=== PATIENT | male | born 1945 | race Caucasian/White ===

== ENCOUNTER 2016-08-28 08:54 | Outpatient (CLI) | payer MEDICARE, OTHER ==
[2016-08-28 09:45] LABS: #Basophils 0.2 thou/uL (0.0-0.2); #Eosinphils 0.4 thou/uL (0.0-0.7); #Lymphocytes 3.2 thou/uL (1.20-3.40); #Monocytes 0.6 thou/uL (0.11-0.59); %Basophils 2.1 % (0.0-1.0); %Eosinophils 5.4 % (0.0-10.0); %Lymphocytes 43.8 % (21.0-51.0); %Monocytes 8.1 % (0.0-10.0); %Neutrophils 40.6 % (42.0-75.0); Mean Corpuscular HGB CONC 34.5 g/dL (32.0-36.0); Mean Corpuscular Hemoglobin 31.9 pg (27.0-31.0); Mean Corpuscular Volume 92.5 fl (80.0-94.0); Mean Platelet Volume 7.9 fL (7.4-10.4); Platelet Count 263 thou/uL (130-400); RBC Distribution Width 12.3 % (11.5-14.5); White Blood Cell (WBC) Count 7.4 thou/uL (4.8-10.8)
[2016-08-28 09:59] LABS: ALT (SGPT) 22 U/L (0-55); AST (SGOT) 22 U/L (5-34); Albumin 4.4 g/dL (3.4-4.8); Alkaline Phosphatase 41 U/L (40-150); Anion Gap 13 mmol/L (10-20); BUN (Urea Nitrogen) 20 mg/dL (8.4-25.7); Bilirubin, Total 0.6 mg/dL (0.2-1.2); Calc. Creatinine Clearance 0 mL/min (70-130); Calcium 9.8 mg/dL (7.8-10.44); Carbon Dioxide 26 mmol/L (23-31); Cardiac Risk 6.5 (Less than 4.5); Chloride 110 mmol/L (98-107); Cholesterol 182 mg/dL (< 200 Desired); Estimated GFR-MDRD 63; Globulin 2.7 g/dL (2.4-3.5); Glucose 93 mg/dL (80-115); HDL Cholesterol 28 mg/dL (>60 Neg Risk); LDL Cholesterol, Calculated 98 mg/dL; Potassium 4.6 mmol/L (3.5-5.1); Protein, Total 7.1 g/dL (5.8-8.1); Sodium 144 mmol/L (136-145); Triglycerides 278 mg/dL (Less than 150)
== END 2016-08-28 08:55 | disposition home or self-care (01) ==
LOC: BURLAB 08:54
PROVIDERS: ATTEND Family Medicine
DX: E78.5 Hyperlipidemia, unspecified (principal); I10 Essential (primary) hypertension; E78.1 Pure hyperglyceridemia
CPT/HCPCS: 36415; 80053; 80061; 85025; G0103

== ENCOUNTER 2016-10-18 15:49 | Emergency (ER) | payer MEDICARE, OTHER ==
[2016-10-18 16:22] LABS: #Basophils 0.1 thou/uL (0.0-0.2); #Eosinphils 0.2 thou/uL (0.0-0.7); #Monocytes 0.9 thou/uL (0.11-0.59); #Neutrophils 11.5 thou/uL (1.40-6.50); %Basophils 0.9 % (0.0-1.0); %Eosinophils 1.4 % (0.0-10.0); %Lymphocytes 19.2 % (21.0-51.0); %Monocytes 5.9 % (0.0-10.0); %Neutrophils 72.6 % (42.0-75.0); Hemoglobin 15.9 g/dL (14.0-18.0); Mean Corpuscular HGB CONC 33.6 g/dL (32.0-36.0); Mean Corpuscular Hemoglobin 30.6 pg (27.0-31.0); Mean Platelet Volume 7.8 fL (7.4-10.4); Platelet Count 262 thou/uL (130-400); RBC Distribution Width 12.2 % (11.5-14.5); White Blood Cell (WBC) Count 15.9 thou/uL (4.8-10.8)
[2016-10-18 16:37] LABS: CKMB 3.5 ng/mL (0-6.6); Troponin I Less than 0.010 ng/mL (< 0.028)
[2016-10-18] MEDS ORDERED: Famotidine In NaCl 20 mg/50 ml Premix Bag ONE (16:48)
[2016-10-18] MEDS ORDERED: Ondansetron HCl/PF 4 MG/2 ML Vial ONE (16:48)
[2016-10-18] MEDS ORDERED: Fentanyl 100 MCG/2 ML VIAL ONE (16:50)
[2016-10-18 16:56] LABS: ALT (SGPT) 30 U/L (8-55); AST (SGOT) 38 U/L (5-34); Albumin 4.4 g/dL (3.4-4.8); Alkaline Phosphatase 41 U/L (40-150); Anion Gap 19 mmol/L (10-20); BUN (Urea Nitrogen) 24 mg/dL (8.4-25.7); Bilirubin, Total 0.4 mg/dL (0.2-1.2); Calc. Creatinine Clearance 0 mL/min (70-130); Calcium 9.4 mg/dL (7.8-10.44); Carbon Dioxide 18 mmol/L (23-31); Chloride 108 mmol/L (98-107); Estimated GFR-MDRD 61; Globulin 3.8 g/dL (2.4-3.5); Glucose 105 mg/dL (80-115); Lipase Greater than 1000 U/L (8-78); Potassium 5.1 mmol/L (3.5-5.1); Protein, Total 8.2 g/dL (5.8-8.1); Sodium 140 mmol/L (136-145)
[2016-10-18 18:16] LABS: Bilirubin Negative (Negative); Blood, Urine Negative (Negative); Clarity Clear (Clear); Glucose, Urine (Dipstick) Negative (Negative); Leukocyte Negative (Negative); Nitrite Negative (Negative); Protein, Urine (Dipstick) Negative (Neg-Trace); Urobilinogen 0.2 mg/dL (0.2-1.0); pH, Urine 6.5 (5.0-9.0)
[2016-10-18] MEDS ORDERED: Morphine Sulfate 2 MG/ML SYRINGE ONE (18:50)
--- NOTE | 2016-10-18 19:03 | CT ---
CT OF THE ABDOMEN AND PELVIS WITH CONTRAST 10/18/16 INDICATION: Left upper abdominal pain. Reference made to 10/21/12 exam. There has been marked interval decrease in size of pancreatic cyst about the pancreatic tail, curren tly measuring approximately 3 cm in diameter compared to the prior 6.4 cm dimension. There is mild s urrounding peripancreatic inflammation which could be on the basis of superimposed acute pancreatiti s. Left renal cyst is redemonstrated posteriorly, and scattered right renal cysts are again seen. Th ere is no focal hepatic or splenic lesion. Adrenal glands are unremarkable. Small bowel is normal ca liber. There is colonic diverticulosis. The colon was diffusely unopacified which limits assessment. No free air. Imaged lung bases reveal scarring and/or volume loss. There is prostate hypertrophy an d calcification. The osseous structures reveal degenerative change. IMPRESSION: 1. Interval reduction in volume of pancreatic pseudocyst. There is peripancreatic inflammation. Correlate for evidence of superimposed acute pancreatitis. 2. Bilateral renal cysts are again seen. 3. Colonic diverticulosis. POS: RENE
== END 2016-10-18 19:21 | disposition short-term general hospital (02) ==
LOC: BURERS 15:49
DX: K85.90 Acute pancreatitis without necrosis or infection, unspecified (principal); I10 Essential (primary) hypertension; E78.5 Hyperlipidemia, unspecified; Z79.899 Other long term (current) drug therapy
CPT/HCPCS: 36415; 74177; 80053; 81003; 82553; 83690; 84484; 85025; 93005; 94760; 96361; 96365; 96375; J2270; J2405; J3010